=== PATIENT | female | born 1985 | race Caucasian/White ===

== ENCOUNTER → 2019-12-01 | Outpatient (CLI) | payer OTHER ==
[~2019-12-01] MED LIST: ALPR0.5T6 PO; INSU100I17 SQ; INSU100V37 SQ; LUBI24CA7 PO; PANT40TA77 PO; SUCR1TAB35 PO; VENL150T PO
== END | disposition home or self-care (01) ==
LOC: LAB 13:45
PROVIDERS: ATTEND Internal Medicine Gastroenterology
DX: Z01.818 Encounter for other preprocedural examination (principal); Z11.59 Encounter for screening for other viral diseases; R11.2 Nausea with vomiting, unspecified
CPT/HCPCS: U0003-CS

== ENCOUNTER → 2019-12-04 | Day surgery (SDC) | payer OTHER ==
[~2019-12-04] MED LIST changes: +IV RINGERS,LACTATED 1000ML 1,000 ML IV ONE; +LIDOCAINE 2% PF 5 ML VIAL. ONE; +PROPOFOL 10 MG/ML (20ML) VIAL. IV ONE
[2019-12-04 13:40] VITALS: BP 116/78
== END | disposition home or self-care (01) ==
LOC: ENDOS 11:43 → EDUNIT# 13:00
PROVIDERS: ATTEND Internal Medicine Gastroenterology
DX: K29.50 Unspecified chronic gastritis without bleeding (principal); Z79.899 Other long term (current) drug therapy
CPT/HCPCS: 43235; 81025; 82962; J2704

== ENCOUNTER → 2020-03-12 | Outpatient (CLI) | payer OTHER ==
[2019-12-04 13:40] VITALS: BP 116/78
[~2020-03-12] MED LIST changes: -IV RINGERS,LACTATED 1000ML 1,000 ML IV ONE; -LIDOCAINE 2% PF 5 ML VIAL. ONE; -PROPOFOL 10 MG/ML (20ML) VIAL. IV ONE
== END ==
LOC: LAB 14:51
PROVIDERS: ATTEND Nurse Practitioner Family
DX: D64.9 Anemia, unspecified (principal)
CPT/HCPCS: 36415; 87040; 87205

== ENCOUNTER → 2020-05-25 | Outpatient (CLI) | payer OTHER ==
[2019-12-04 13:40] VITALS: BP 116/78
[2020-05-25 15:28] LABS: BASO % 0 % (0-3); EOS # 0.1 x10^3/uL (0.0-0.7); EOS % 2 % (0-3); HEMATOCRIT 32.4 % (36.0-47.0); HEMOGLOBIN 10.7 g/dL (12.0-15.5); LYMPH # 1.5 x10^3/uL (1.0-4.8); LYMPH % 26 % (24-48); MEAN CORPUSCULAR HEMOGLOBIN 29 pg (25-35); MEAN CORPUSCULAR HGB CONC 33 g/dL (31-37); MEAN CORPUSCULAR VOLUME 88 fL (79-100); MONO # 0.4 x10^3/uL (0.0-1.1); MONO % 7 % (0-9); NEUT # 3.7 x10^3/uL (1.8-7.7); NEUT % 65 % (31-73); PLATELET COUNT 176 x10^3/uL (140-400); RED BLOOD COUNT 3.68 x10^6/uL (3.50-5.40); RED CELL DISTRIBUTION WIDTH 18.1 % (11.5-14.5)
[2020-05-25 15:54] LABS: ANISOCYTOSIS SLIGHT; PLT ESTIMATE ADEQUATE (ADEQUATE)
[2020-05-26 12:12] LABS: WHITE BLOOD COUNT 5.6 x10^3/uL (4.0-11.0)
[2020-06-02 20:08] LABS: METHYLMALONIC ACID 188 nmol/L (0-378)
== END ==
LOC: ONCLAB 14:13
PROVIDERS: ATTEND Internal Medicine Hematology & Oncology
DX: C53.8 Malignant neoplasm of overlapping sites of cervix uteri (principal)
CPT/HCPCS: 36415; 82525; 82607; 82668; 82746; 83010; 83615; 83921; 85025; 85045